=== PATIENT | female | born 1990 | race Caucasian/White ===

== ENCOUNTER → 2016-10-10 | Outpatient (CLI) | payer OTHER ==
[~2016-10-10] MED LIST: ACET50TA PO; BUDE180INH INH; EVEN1000 PO; IBUP60TA PO; IPRAINH INH; PREN27TA3 PO; RANI1TAB6 PO; VITAPRTA PO
[2016-10-10 13:28] LABS: ALBUMIN 4.3 GM/DL (3.2-5.2); ALBUMIN/GLOBULIN RATIO 1.26 (1.00-1.93); ALKALINE PHOSPHATASE 86 U/L (45-117); ALT/SGPT 28 U/L (12-78); ANION GAP 9 MEQ/L (8-16); AST/SGOT 11 U/L (15-37); BILIRUBIN,TOTAL 0.9 MG/DL (0.2-1.0); BLOOD UREA NITROGEN 16 MG/DL (7-18); CALCIUM LEVEL 9.4 MG/DL (8.5-10.1); CARBON DIOXIDE LEVEL 28 MEQ/L (21-32); CHLORIDE LEVEL 106 MEQ/L (98-107); CHOLESTEROL LEVEL 220 MG/DL (<200); FREE T4 1.12 NG/DL (0.76-1.46); GLOMERULAR FILTRATION RATE > 60.0 (>60); GLUCOSE, FASTING 88 MG/DL (70-105); POTASSIUM SERUM 4.7 MEQ/L (3.5-5.1); SODIUM LEVEL 143 MEQ/L (136-145); TOTAL PROTEIN 7.7 GM/DL (6.4-8.2); TRIGLYCERIDES LEVEL 175 MG/DL (<150)
== END ==
LOC: M SMT 09:48
PROVIDERS: ATTEND Family Medicine
DX: Z13.29 Encounter for screening for other suspected endocrine disorder (principal); Z13.220 Encounter for screening for lipoid disorders

== ENCOUNTER → 2017-01-20 | Outpatient (CLI) | payer OTHER ==
[~2017-01-20] MED LIST changes: +METHACHOLINE KIT (J7674) INH ONE
--- NOTE | 2017-01-20 08:47 | PFTRPT ---
tech: Steve BRIONES RRT Age: 27 Sex: Female Race: Height: 66.50 Inches Weight: 237.00 Lbs BSA: 2.16 Diagnosis: R06.02 METHACHOLINE CHALLENGE REPORT: ORDERING PROVIDER: YONI Glover DATE OF SERVICE:01/20/17 INTERPRETATION: The study was of excellent technical quality. Under protocol, methacholine was administered. At a dose of 0.25 mg (1.375 CDUs), a 23% decline in the FEV1 was noted. The PC20 of 0.14 is significant. Flow rates did return to baseline post bronchodilator administration. IMPRESSION: Positive methacholine challenge study. MTDD
--- NOTE | 2017-01-20 16:30 | REP ---
Chest x-ray: Two views. History: Shortness of breath . Comparison study: No comparison study . Findings: The lungs are well inflated and free of infiltrate. The pleural angles are sharp. The heart size is normal. Pulmonary vasculature is not increased. No significant bony abnormality is seen. Impression: Negative chest x-ray. Signed by Levy Toledo MD 01/20/2017 04:19 P
== END ==
LOC: M CARPUL 07:38
PROVIDERS: ATTEND Nurse Practitioner Adult Health
DX: R06.02 Shortness of breath (principal)
CPT/HCPCS: 71020; J7674

== ENCOUNTER → 2017-02-06 | Outpatient (REF) | payer OTHER ==
[~2017-02-06] MED LIST changes: -METHACHOLINE KIT (J7674) INH ONE
== END ==
LOC: M LAB REF 15:42
PROVIDERS: ATTEND Family Medicine
DX: D48.5 Neoplasm of uncertain behavior of skin (principal)

== ENCOUNTER → 2017-06-11 | Outpatient (CLI) | payer OTHER ==
[2017-06-11 13:24] LABS: FOLLICLE STIMULATING HORMONE 1.1 mIU/mL; LUTEINIZING HORMONE 2.5 mIU/mL
[2017-06-15 08:08] LABS: INSULIN FREE 8.7 uU/mL (.)
== END ==
LOC: M SMT 10:33
PROVIDERS: ATTEND Advanced Practice Midwife
DX: L68.0 Hirsutism (principal)

== ENCOUNTER → 2018-03-09 | Outpatient (CLI) | payer OTHER | LOC: M RAD 13:26 | DX: R91.8 Other nonspecific abnormal finding of lung field (principal); Z87.891 Personal history of nicotine dependence | CPT/HCPCS: 71250 ==

== ENCOUNTER → 2018-07-22 | Outpatient (CLI) | payer OTHER ==
[2018-07-22 17:21] LABS: BASO # 0.1 10^3/uL (0.0-0.2); EOS # 0.3 10^3/uL (0.0-0.50); EOS % 4.4 % (0.0-3.0); HEMATOCRIT 41.4 % (36.0-47.0); HEMOGLOBIN 13.5 g/dl (12.0-15.5); IMMATURE GRANULOCYTE % 0.3 % (0-3.0); LYMPH # 3.1 10^3/uL (1.5-4.5); LYMPH % 42.4 % (24.0-44.0); MEAN CORPUSCULAR HEMOGLOBIN 30.3 pg (27.0-33.0); MEAN CORPUSCULAR HGB CONC 32.6 g/dl (32.0-36.5); MEAN CORPUSCULAR VOLUME 92.8 fl (80.0-96.0); MONO # 0.5 10^3/uL (0.0-0.8); MONO % 6.6 % (0.0-5.0); NEUTROPHILS # 3.3 10^3/uL (1.8-7.7); NEUTROPHILS % 45.3 % (36.0-66.0); PLATELET COUNT, AUTOMATED 300 10^3/uL (150-450); RED BLOOD COUNT 4.46 10^6/uL (4.00-5.40); RED CELL DISTRIBUTION WIDTH 12.6 % (11.5-14.5); WHITE BLOOD COUNT 7.3 10^3/uL (4.0-10.0)
[2018-07-22 17:36] LABS: HEMATOCRIT 41.4 % (36.0-47.0)
[2018-07-22 17:40] LABS: ALBUMIN/GLOBULIN RATIO 1.21 (1.00-1.93); ALKALINE PHOSPHATASE 59 U/L (45-117); ALT/SGPT 26 U/L (12-78); ANION GAP 3 MEQ/L (8-16); AST/SGOT 9 U/L (7-37); BILIRUBIN,TOTAL 0.7 MG/DL (0.2-1.0); BLOOD UREA NITROGEN 14 MG/DL (7-18); CALCIUM LEVEL 9.7 MG/DL (8.5-10.1); CARBON DIOXIDE LEVEL 30 MEQ/L (21-32); CHLORIDE LEVEL 104 MEQ/L (98-107); CREATININE FOR GFR 0.89 MG/DL (0.55-1.30); FERRITIN 62 NG/ML (8-252); GLOMERULAR FILTRATION RATE > 60.0 (>60); GLUCOSE, FASTING 91 MG/DL (70-100); IRON (FE) 137 UG/DL (50-170); MAGNESIUM LEVEL 2.2 MG/DL (1.8-2.4); PHOSPHORUS LEVEL 3.7 MG/DL (2.5-4.9); POTASSIUM SERUM 4.9 MEQ/L (3.5-5.1); SODIUM LEVEL 137 MEQ/L (136-145); TOTAL PROTEIN 7.3 GM/DL (6.4-8.2)
[2018-07-22 17:43] LABS: VITAMIN B12 LEVEL 765 PG/ML (247-911)
[2018-07-22 17:48] LABS: TOTAL 25(OH) VITAMIN D 33.1 NG/ML (30.0-100.0)
[2018-07-22 19:08] LABS: ESTIMATED AVERAGE GLUCOSE 97 MG/DL (60-110)
[2018-07-22 20:56] LABS: PERCENT SATURATION 41.1 % (13.2-45.0); TOTAL IRON BINDING CAPACITY 333 UG/DL (250-450)
[2018-07-23 11:33] LABS: PRETREATED FOLATE FOR RBCFOL 9.4 NG/ML; RBC FOLATE 476 NG/ML (280-791)
== END ==
LOC: M SMT 15:31
DX: K91.2 Postsurgical malabsorption, not elsewhere classified (principal); E55.9 Vitamin D deficiency, unspecified; Z98.84 Bariatric surgery status
CPT/HCPCS: 83550

== ENCOUNTER → 2018-08-09 | Outpatient (CLI) | payer OTHER | LOC: M SMT 13:42 | DX: J04.0 Acute laryngitis (principal) | CPT/HCPCS: 71046 ==

== ENCOUNTER → 2018-11-18 | Outpatient (CLI) | payer OTHER ==
[~2018-11-18] MED LIST changes: -ACET50TA PO; +MAPA500T2 PO
[2018-11-18 13:34] LABS: BASO # 0.1 10^3/uL (0.0-0.2); EOS # 0.7 10^3/uL (0.0-0.50); EOS % 7.6 % (0.0-3.0); HEMATOCRIT 39.4 % (36.0-47.0); HEMOGLOBIN 13.6 g/dl (12.0-15.5); LYMPH # 2.7 10^3/uL (1.5-4.5); LYMPH % 28.7 % (24.0-44.0); MEAN CORPUSCULAR HEMOGLOBIN 30.4 pg (27.0-33.0); MEAN CORPUSCULAR HGB CONC 34.5 g/dl (32.0-36.5); MEAN CORPUSCULAR VOLUME 88.1 fl (80.0-96.0); MONO # 0.8 10^3/uL (0.0-0.8); MONO % 8.5 % (0.0-5.0); PLATELET COUNT, AUTOMATED 288 10^3/uL (150-450); RED BLOOD COUNT 4.47 10^6/uL (4.00-5.40); WHITE BLOOD COUNT 9.3 10^3/uL (4.0-10.0)
[2018-11-18 13:43] LABS: BLOOD UREA NITROGEN 12 MG/DL (7-18); CARBON DIOXIDE LEVEL 23 MEQ/L (21-32); CHLORIDE LEVEL 104 MEQ/L (98-107); CREATININE FOR GFR 0.83 MG/DL (0.55-1.30); GLOMERULAR FILTRATION RATE > 60.0 (>60); GLUCOSE, FASTING 74 MG/DL (70-100); POTASSIUM SERUM 3.2 MEQ/L (3.5-5.1); SODIUM LEVEL 139 MEQ/L (136-145)
== END ==
LOC: M WUC 10:11
PROVIDERS: ATTEND Physician Assistant
DX: R19.7 Diarrhea, unspecified (principal)